=== PATIENT | female | born 1955 | race African-American/Black ===

== ENCOUNTER → 2016-08-22 | Outpatient (CLI) | payer OTHER ==
[~2016-08-22] MED LIST: ALLEGRA ALLERGY60 MG PO; CATAFLAM50 MG PO; FERRO-TIME325 MG PO; FLEXERIL10 MG PO; GLUCOPHAGE500 MG PO; HCTZ PO; KEFLEX250 M1 PO; LISINOPRIL-HCTZ1 T18 PO; MOBIC PO; MONTELUKAST SOD10 MG PO; PHENERGAN25 MG PO; TALADINE150 MG PO; TRAMADOL HCL50 M1 PO; VICODIN 5/500 T1 TAB PO; VITAMIN D31000 UNI1 PO; VOLTAREN75 MG PO
--- NOTE | ~2016-08-22 | CR230 ---
[facility] A Service of [facility] & [facility] RADIOLOGY TEXT RESULTS PATIENT: PASCALE MOODY LOCATION: [facility] : 53 UNIT #: [id number] AGE: [address]: AMY TALBOT APRN SEX: F ORDER DR: [id number] [facility] [address] [facility]. [place], [place] [address] [id number] O MR#: [id number] Acc #: [id number] NAME: PASCALE MOODY : 1955 SEX: F STUDY DATE/TIME: 08/22/2016 10:50 UNIT: [facility] ROOM: STUDY DESCRIPTION: CR Shoulder Min 2 View Rt Attending Physician: Amy Talbot Aprn Referring Physician: Amy Talbot Aprn Ordering Physician: Amy Talbot Aprn Primary Care Physician: Nury Marinelli M.D. MEDICAL IMAGING REPORT This report is preliminary unless electronic signature is present EXAM Right shoulder. HISTORY Shoulder pain and limited range of motion over the past month. TECHNIQUE 2 views of the shoulder were obtained. FINDINGS Moderate degenerative changes are seen at the acromioclavicular joint and glenohumeral joint with small osteophytes. There is no evidence of subluxation or dislocation. No abnormal soft tissue calcifications are seen. Adjacent ribs and clavicle are intact. IMPRESSION Mild to moderate osteoarthritis of both the acromioclavicular and glenohumeral joints. No acute bony abnormalities are seen. Dictated by... Roque Ramirez M.D. THIS IS AN ELECTRONICALLY VERIFIED REPORT Roque Ramirez M.D. at 08/23/2016 7:34 AM LORI/jocelyne TD: 08/22/2016 18:19 JOB #: [id number] MEDICAL IMAGING REPORT Page 1 of 1 COPY
== END | disposition home or self-care (01) ==
LOC: CRAD 10:19
DX: M25.511 Pain in right shoulder (principal); M19.011 Primary osteoarthritis, right shoulder
CPT/HCPCS: 73030